=== PATIENT | male | born 1950 | race Caucasian/White ===

== ENCOUNTER 2018-03-08 05:15 | Day surgery (SDC) | payer MEDICARE ==
[2018-03-07 09:06] LABS: HEMATOCRIT 38.6 % (42.0-54.0); HEMOGLOBIN 12.9 g/dL (13.5-17.5); MCHC 33.4 g/dL (31.0-37.0); MCV 89.8 fL (80.0-100.0); MEAN PLATELET VOLUME 9.1 fL (7.4-10.4); RBC 4.3 10x6/uL (4.20-6.10); RDW 14.3 % (11.5-14.5); WBC 9.5 10x3/uL (4.8-10.8)
[~2018-03-08] VITALS: Ht 182.9 cm; Wt 113.4 kg
--- NOTE | ~2018-03-08 | OP ---
PATIENT NAME: HOANG COHEN MEDICAL RECORD: [id number] :48 LOCATION:[facility] ADMISSION DATE: SURGEON: HUSSEIN BLANCO DO DATE OF OPERATION: 03/08/2018 PROCEDURE PERFORMED: Left knee arthroscopy with partial medial and partial lateral meniscectomies. PREOPERATIVE DIAGNOSIS: Left knee medial meniscal tear. POSTOPERATIVE DIAGNOSES: Left knee medial meniscal tear with grade III chondromalacia of the medial femoral condyle, the medial tibial plateau and the lateral facet of the patella and lateral meniscal tear. INDICATIONS: Mr. Cohen is a 67-year-old male who came to my office last year, complaining of knee pain. We got an MRI that showed some arthritis and a meniscal tear, degenerative nature in the posterior horn of the medial meniscus. It was catching, popping, locking on. My nurse practitioner saw him again in October and he was still having problems. He was scheduled for surgery in July for this problem, but due to some other issues, he could not have surgery. He was rescheduled for December and again had some other issues and could not have surgery. He got medically cleared for surgery today for the knee scope. I informed him of the risks and benefits of the procedure including the fact that he may not get a whole lot better due to the fact that he does have underlying arthritis in the knee, but we trim out the meniscus and then hopefully get rid of his meniscal symptoms. He was aware of that and consented to the procedure. He is aware of the risks including infection, bleeding, need for further surgery, and he was okay with that too and signed the consent. SURGEON: Hussein Blanco DO DESCRIPTION OF PROCEDURE: The patient was brought to the operative suite, laid in supine position, given general anesthetic and 2 grams Ancef preoperatively. The left lower extremity was prepped and draped in sterile fashion. Once he was prepped and draped, timeout was performed, everyone was in agreement as to the correct, side, site, patient, and the procedure. The procedure then began with the knee flexed and started with a lateral portal opening up with an 11-blade scalpel. The trocar was then entered in the knee. Suprapatellar pouch was inspected. The grade III chondromalacia was seen on the patella and then on the lateral facet. The lateral gutter was inspected and no loose body was seen there. Medial gutter likewise was inspected and the knee was brought from extension to flexion and the medial compartment was entered. The medial compartment was quite tight likely due to the arthritis and there appeared to be a small plica band, which was resected at that time. Once this was resected, the knee opened up better. The medial portal was established with an 18-gauge spinal needle and then a #11-blade scalpel. A probe was entered into the knee. The meniscal tear was seen as well as the chondromalacia of the medial femoral condyle and the medial tibial plateau. The meniscus was then trimmed out with a straight biter and a shaver. Once the meniscus was trimmed back to a stable position, it was not flipping in and out. The ACL was probed and seen to be very taut and then lateral compartment was entered [id number] the leg. There was a small tear noticed on the very inside of the middle of the middle portion of the lateral meniscus, this was trimmed out with a shaver. The scope was then put back in the suprapatellar pouch, looking for any loose bodies. At that time, there was none seen. The suction was turned on. The water was OPERATIVE REPORT [id number] HOANG COHEN turned off and the excess fluid removed out of the knee. After this was performed, the portal sites were closed with 4-0 Monocryl in inverted interrupted fashion. Steri-Strips, Adaptic, 4 x 4's, ABD, Webril and Juan Antonio wrap were then placed on the knee and a PURA hose stockinette was placed up to the knee. The patient was awakened and taken to recovery in stable condition. Blood loss was minimal. COMPLICATIONS: None. TRANSINT:[id number] Voice Confirmation ID: [id number] DOCUMENT ID: [id number] HUSSEIN BLANCO DO at 1220 CC: [id number] DICTATION DATE: 03/08/18 0843 PLUMBING MECHANIC: 03/08/18 1114 [facility] 03/08/18 [place] [id number] [place] [id number]
[~2018-03-08 05:15] MED LIST: ASPIRIN EC81 M1 PO; COREG6.25 MG PO; COZAAR100 MG PO; PLAVIX75 MG PO; PROBIOTIC BLEN1 EACH PO
[2018-03-08 06:43] VITALS: BP 149/83; Ht 182.9 cm; Wt 113.4 kg
[2018-03-08] MEDS ORDERED: PERCOCET 5-3251 TAB PO (08:38)
== END 2018-03-08 10:24 | disposition home or self-care (01) ==
LOC: D.OPS 05:15 → D.PAN 07:30 → D.OPS 10:24 → D.PAN 03-29 07:30
PROVIDERS: Anesthesiology
DX: S83.252A Bucket-handle tear of lateral meniscus, current injury, left knee, initial encounter (principal)

== ENCOUNTER → 2018-11-07 19:40 | Outpatient (CLI) | payer MEDICARE ==
[2018-03-08 06:43] VITALS: BMI 34.0
[~2018-11-07 19:40] MED LIST changes: +BAYER CHEWABLE81 MG PO; +CITRACAL + D E1 EACH PO; +HYDRALAZINE HCL25 MG PO; +NITROSTAT0.4 MG SL; +NORVASC5 MG PO; +PERCOCET 5-3251 TAB PO
== END | disposition home or self-care (01) ==
LOC: D.LABREF 19:40
PROVIDERS: ATTEND Orthopaedic Surgery
DX: M17.11 Unilateral primary osteoarthritis, right knee (principal); Z11.8 Encounter for screening for other infectious and parasitic diseases

== ENCOUNTER 2018-11-11 06:17 | Outpatient (CLI) | payer MEDICARE ==
[~2018-11-11] VITALS: Ht 182.9 cm; Wt 112.3 kg
--- NOTE | ~2018-11-11 | HEMODYNAMI ---
PATIENT:HOANG CABELLO MEDICAL RECORD: [id number] : 48 LOCATION:[facility] ADMISSION DATE: 11/11/18 Generatedon:11/11/20189:56 Patient name: HOANG CABELLO Patient #: [id number] SSN: : 1950 Date of study: 11/11/2018 Page: Of Hemodynamic Procedure Report Patient Data Patient Demographics Procedure consent was obtained First Name: HOANG Gender: Male Last Name: DESTINEY : 1950 Patient #: [id number] Age: 68 year(s) Race: Unknown Additional ID: [id number] Contact details Address: [address] [place] [address] lane State: [place] City: [place] Zip code: [address] Past Medical History Allergies Allergen Reaction Date Comments Reported Other allergy 11/11/2018 CEFDINIR Admission Admission Data Admission Date: 11/11/2018 Admission Time: 6:17 Procedure Procedure Types Cath Procedure Diagnostic Procedure LHC LH w/Coronaries Sedation Charges Moderate Sedation up to 15 minutes PCI Procedure Coronary Stent Coronary Stent Initial Procedure Description Procedure Date Procedure Date: 11/11/2018 Procedure Start Time: 9:24 Procedure End Time: 9:54 Procedure Staff Name Function Sina Lee MD Performing Physician Paolo Skelton RN Nurse Alissa Yang RT Monitor Handy Varma RT Scrub Procedure Data Cath Procedure Fluoroscopy Diagnostic fluoroscopy Total fluoroscopy Time: 8.4 time: 8.4 min min Diagnostic fluoroscopy Total fluoroscopy dose: dose: 1522 mGy 1522 mGy Contrast Material Contrast Material Type Amount (ml) Isovue 300 10 Entry Location Entry Primary Successful Side Size Upsize Upsize Entry Closure Jimenez ccessful Closure Location (Fr) 1 (Fr) 2 (Fr) Remarks Device Remarks Radial Right 6 Fr Mechanical artery Short Compression Estimated blood loss: 10 ml Diagnostic catheters Device Type Used For End Catheter Placement DIAGNOSTIC Daren 110cm Procedure 5Fr catheter ([id number]) DIAGNOSTIC AR MOD 5Fr Procedure Catheter ([id number]) DIAGNOSTIC AR2 MOD 5 Fr Procedure catheter ([id number]) DIAGNOSTIC Kinston 4.5 5Fr Procedure catheter (205692) Procedure Complications No complications Procedure Medications Medication Administration Route Dosage 0.9% NaCl I.V. 100 ml/hr Oxygen etCO2 Nasal cannula 2 l/min Heparin Flush Bag added to field 2 bags (1000units/500ml NS) Lidocaine 2% added to field 20 Radial Cocktail added to field 1 syringe (Verapamil 2mg/Nitro 400mcg/Heparin 1500units) Versed I.V. 2 mg Fentanyl I.V. 100 mcg Radial Cocktail I.A. 1 syringe (Verapamil 2mg/Nitro 400mcg/Heparin 1500units) Heparin Bolus I.V. 55903 units Plavix P.O. 600 mg Hemodynamics Rest Heart Rate: 68 (bpm) Pressure Samples Time Site Value (mmHg) Purpose Heart Use Rate(bpm) 9:26 LV 118/-10,5 Snapshot 72 9:27 AO 81/51(60) Pullback 80 9:27 LV 101/3,6 Pullback 80 Gradients Valve Time Site 1 Site 2 Mean SEP/DFP Peak To Heart Use (mmHg) (sec/min) Peak Rate (mmHg) (bpm) Aortic 9:27 LV AO 13 20 20 80 101/3,6 81/51(60) Calculations Valve P-P Mean Valve Index Valve Source Name Gradient Area Flow (cm2) Aortic 20 13 20 13 Snapshots Pre Cath Intra NCS Post Cath Vital Signs Time Heart Resp SPO2 etCO2 NIBP (mmHg) Rhythm Pain Sedation Rate (ipm) (%) (mmHg) Status Level (bpm) 9:16:15 68 20 96 36.3 125/78(99) NSR 0 (11) 10(A) , No pain 9:20:25 67 16 96 37.1 117/77(98) NSR 0 (11) 10(A) , No pain 9:24:31 67 20 96 38.6 122/72(109) NSR 0 (11) 10(A) , No pain 9:28:34 77 20 95 30.4 107/67(94) NSR 0 (11) 10(A) , No pain 9:32:38 72 17 95 37.1 107/72(97) NSR 0 (11) 10(A) , No pain 9:36:46 67 20 96 34.9 112/67(92) NSR 0 (11) 9(A) , No pain 9:40:56 68 17 97 37.8 114/70(88) NSR 0 (11) 9(A) , No pain 9:45:10 68 18 96 36.4 108/62(84) NSR 0 (11) 9(A) , No pain 9:49:20 72 23 96 34.1 106/66(80) NSR 0 (11) 10(A) , No pain 9:53:27 69 16 97 34.9 111/66(82) NSR 0 (11) 10(A) , No pain Medications Time Medication Route Dose Verified Delivered Reason Note s Effectiveness by by 9:17:51 0.9% NaCl I.V. 100 Paolo Paolo Per physician ml/hr Nafisa Skelton RN RN 9:18:02 Oxygen etCO2 2 l/min Paolo Paolo for low 02 sats Nasal Nafisa Skelton cannula RN RN 9:18:13 Heparin Flush added 2 bags Paolo Paolo used for Bag to Nafisa Skelton procedure (1000units/500ml RN RN NS) 9:18:27 Lidocaine 2% added 20ml Paolo Paolo for local to vial Lorigan Lorigan anesthetic field NESS RN 9:18:48 Radial Cocktail added 1 Paolo Paolo used for (Verapamil to syringe Nafisa Skelton procedure 2mg/Nitro RN RN 400mcg/Heparin 1500units) 9:22:55 Versed I.V. 2 mg Paolo Paolo for sedation Nafisa Skelton RN RN 9:23:08 Fentanyl I.V. 100 mcg Paolo Paolo for sedation Nafisa Skelton RN RN 9:25:38 Radial Cocktail I.A. 1 Paolo Sina for (Verapamil syringe Nafisa Lee MD vasodilation 2mg/Nitro RN 400mcg/Heparin 1500units) 9:43:58 Heparin Bolus I.V. 11,000 Paolo Paolo for units Nafisa Skelton anticoagulation RN RN 9:52:20 Plavix P.O. 600 mg Paolo Paolo for Lorgregg Skelton antiplatelet RN RN therapy Procedure Log Time Note 8:55:14 Handy TABOR(R) sent for patient. Start room use. 9:04:10 Signed procedure consent form obtained from patient. 9:04:12 Diagnostic Cath status Elective 9:05:35 Patient received from Pre/Post Procedure Room to CCL 1 Alert and oriented. Tansferred to table in Supine position. 9:05:36 Warm blankets applied, and matty hugger turned on for patient comfort. 9:05:36 Correct patient and procedure confirmed by team. 9:05:37 ECG and BP/O2 sat monitors applied to patient. 9:15:15 Vital chart was started 9:15:17 Baseline sample Acquired. 9:15:20 Rhythm: sinus rhythm 9::22 Full Disclosure recording started 9::22 Pre-procedure instructions explained to patient. :15:22 Pre-op teaching completed and patient verbalized understanding. 9:15:25 Family in patients room. 9:15:26 Patient NPO since Midnight. 9:15:45 Patient allergic to Other allergyCEFDINIR 9:15:47 Is the patient allergic to Iodine/contrast media? No. 9:15:48 Patient diabetic? No. 9:15:51 Previous problem with sedation/anesthesia? No ? 9:15:52 Snore? Yes 9:15:53 Sleep apnea? No 9:15:54 Deviated septum? No 9:15:54 Opens mouth fully? Yes 9:15:55 Sticks out tongue? Yes 9:16:00 Airway obstruction? No ? 9:16:02 Dentures? No ? 9:17:51 0.9% NaCl 100 ml/hr I.V. was administered by Paolo Skelton RN; Per physician; 9:18:02 Oxygen 2 l/min etCO2 Nasal cannula was administered by Paolo Skelton RN; for low 02 sats; 9:18:13 Heparin Flush Bag (1000units/500ml NS) 2 bags added to field was administered by Paolo Skelton RN; used for procedure; 9:18:27 Lidocaine 2% 20ml vial added to field was administered by Paolo Skelton RN; for local anesthetic; 9:18:46 Pre procedure: right dorsailis pedis pulse 1+ Palpable, but thready & weak; easily obliterated 9:18:48 Radial Cocktail (Verapamil 2mg/Nitro 400mcg/Heparin 1500units) 1 syringe added to field was administered by Paolo Skelton RN; used for procedure; 9:18:48 Patient pain scale 0/10 ?. 9:18:52 IV patent on arrival in left hand with 0.9% NaCl at KVO. 9:18:55 Lab results completed and on chart. 9:19:01 Right Radial & Right Groin area was prepped with chlora-prep and draped in sterile fashion 9:19:02 Alarms reviewed by R. N. 9:19:02 Sharps counted by scrub and verified by R.N. 9:19:03 Sharps counted by scrub and verified by R.N. 9:20:34 Use device set Radial Dx or PCI 9:20:36 ACIST Syringe (37296) opened to sterile field. 9:20:39 Bag Decanter (2002S) opened to sterile field. 9:20:40 ACIST Hand Control (20980) opened to sterile field. 9:20:40 ACIST Manifold (32431) opened to sterile field. 9:20:41 Tegaderm 4 x 4 (1626W) opened to sterile field. 9:20:43 Medline Cath Pack ([id number]) opened to sterile field. 9:20:43 DIAGNOSTIC WIRE .035 260cm J wire (804203) opened to sterile field. 9:20:43 MBrace Wrist Support ([id number]) opened to sterile field. 9:20:44 SHEATH 6FR Slender (21-4327) opened to sterile field. 9:20:54 --------ALL STOP TIME OUT------ 9:20:54 Final Timeout: patient, procedure, and site verified with staff and physician. All members of the team are in agreement. 9:20:57 Right Radial & Right Groin site verified by team. 9:20:59 Maximum allowable Isovue 300 dose 300ml. Physician notified. (300ml for normal creatinines. For patients with creatinine of 1.7 or higher multiply weight(kg) x 5 divided by creatinine.) 9:21:02 Fire Safety Assessment: A--An alcohol-based skin anteseptic being used preoperatively., C--Open oxygen or nitrous oxide is being used., D--An ESU, laser, or fiber-optic light is being used. 9:21:04 Physical assessment completed. ASA score P 2 - A patient with mild systemic disease as per Sina Lee MD. 9:21:07 Sedation plan: IV Moderate Sedation Medication:Versed, Fentanyl 9:22:55 Versed 2 mg I.V. was administered by Paolo Skelton RN; for sedation; 9:23:08 Fentanyl 100 mcg I.V. was administered by Paolo Skelton RN; for sedation; 9::42 Zero performed for pressure channel P1 9:24:33 Zero performed for pressure channel P1 9:24:39 Procedure started. 9:24:45 Local anesthetic to right radial artery with Lidocaine 2% by Sina Lee MD.INITIAL ACCESS ONLY 9:25:05 A 6 Fr Short sheath was inserted into the Right Radial artery 9:25:32 A DIAGNOSTIC Daren 110cm 5Fr catheter (531730) was advanced over the wire and used for Procedure. 9:25:38 Radial Cocktail (Verapamil 2mg/Nitro 400mcg/Heparin 1500units) 1 syringe I.A. was administered by Sina Lee MD; for vasodilation; 9:26:13 LV gram done using VELEZ 9::19 Injector settings: Ml/sec: 7, Volume: 15, 9::39 LV hemodynamics recorded. 9:26:59 EF : 60 % 9:29:42 LCA angiography performed. 9:29:47 Catheter exchanged over wire. 9:31:00 A DIAGNOSTIC AR MOD 5Fr Catheter ([id number]) was advanced over the wire and used for Procedure. 9:32:31 UNABLE TO ENGAGE RCA 9:32:32 Catheter exchanged over wire. 9:32:53 A DIAGNOSTIC AR2 MOD 5 Fr catheter ([id number]) was advanced over the wire and used for Procedure. 9:36:08 UNABLE TO ENGAGE RCA 9:36:09 Catheter exchanged over wire. 9:36:21 A DIAGNOSTIC Kinston 4.5 5Fr catheter (889429) was advanced over the wire and used for Procedure. 9:36:58 RCA angiography performed. 9:40:07 Catheter exchanged over wire. 9:41:46 BMW 300cm Straight Thomson 2 wire (1529917) opened to sterile field. 9:41:47 INFLATOR Merit BasixCompak (YM2373) opened to sterile field. 9:41:47 TUBING High Pressure Extension Tubing (Jesus) ([id number]) opened to sterile field. 9:42:02 GUIDE 6Fr Kinston 4.0 catheter (772587) opened to sterile field. 9:43:20 6 Fr TIGER 4 guide catheter was inserted over the wire 9:43:58 Heparin Bolus 11,000 units I.V. was administered by Paolo Skelton RN; for anticoagulation; 9:44:34 BMW 300 wire advanced. 9:45:27 Wire advanced across lesion. 9:47:37 Place stent Inflation Number: 1 A COBRA RX 2.5 X 12 Stent was prepped and advanced across the Dist RCA . The stent was deployed at 14 MICH for 0:10 (min:sec) . 9:47:53 Stent catheter was removed intact over wire. 9:48:10 Wire removed. 9:48:11 Guide catheter removed. 9:48:19 TR BAND Standard ([id number]) opened to sterile field. 9:48:53 Procedure ended.(Physican Out) 9:49:38 Sheath removed intact; hemostasis achieved with Mechanical Compression to the Right Radial artery. 9:50:13 Fluoroscopy time 08.40 minutes. 9:50:17 Fluoroscopy dose: 1522 mGy 9:50:17 Flurop Dose total: 1522 9:50:22 Contrast amount:Isovue 300 10ml. 9:51:00 Sharps counted by scrub and verified by R.N. 9:51:02 TR band inflated with 8cc of air. 9:51:08 Post-procedure physical assessment completed. ASA score P 2 - A patient with mild systemic disease as per Sina Lee MD. 9:51:10 Post procedure rhythm: sinus rhythm 9:51:12 Estimated blood loss: 10 ml 9:51:13 Post procedure instruction explained to patient.Patient verbalizes understanding. 9:51:14 Patient needs reinforcement of post procedure teaching. 9:51:38 Procedure type changed to Cath procedure, Diagnostic procedure, LHC, C w/Coronaries, Sedation Charges, Moderate Sedation up to 15 minutes, PCI procedure, Coronary Stent, Coronary Stent Initial 9:52:07 Procedure and supply charges have been captured, reviewed, submitted and are correct. 9:52:10 Procedure Complication : No complications 9:52:20 Plavix 600 mg P.O. was administered by Paolo Skelton RN; for antiplatelet therapy; 9:54:24 Vital chart was stopped 9:54:25 See physician's report for complete and final results. 9:54:26 Report given to Pre/Post Procedure Room. 9:54:29 Patient transfered to Pre/Post Procedure Room with Bed. 9:54:30 Procedure ended. 9:54:30 Full Disclosure recording stopped 9:54:33 End room use (Document Last) Intervention Summary Intervention Notes Time ActionType Lesion and Equipment Action# Pressure Duration Attributes Used 9:47:37 Place stent Dist RCA COBRA RX 1 14 00:10 2.5 X 12 Stent Device Usage Item Name Manufacture Quantity Catalog Hospital Part Current Minimal Lot# / Number Charge Number Stock Stock Serial# Code ACIST Syringe Acist 1 71671 662801 632776 183426 20 (61336) Medical Systems Xenapto Bag Decanter Microtek 1 2001S 230597 33084 609453 5 (2001S) Medical Inc. ACIST Hand Acist 1 42502 607580 048343 082028 5 Control Medical (99944) Systems Inc ACIST Manifold Acist 1 98287 388865 804805 662763 5 (23338) Medical Systems Inc Tegaderm 4 x 4 3M 1 1626W 933395 854415 953287 5 (1626W) Medline Cath Medline 1 [id number] 429064 37496 459296 5 Pack ([id number]) DIAGNOSTIC St Real 1 646602 656750 756356 087042 30 WIRE .035 260cm J wire (383823) MBrace Wrist Advanced 1 140-0250-00 335383 71134 717641 5 Support Vascular (542310590) Dynamics SHEATH 6FR Terumo 1 [id number] 933277 151221 225585 5 Slender (80-1060) DIAGNOSTIC Terumo 1 40-5023 506887 485421 768702 5 Daren 110cm 5Fr catheter (740840) DIAGNOSTIC AR Cardinal 1 [id number] 454584 035054 716008 15 MOD 5Fr Health Catheter (613967Q) DIAGNOSTIC AR2 Cardinal 1 [id number] 076351 492280 931718 20 MOD 5 Fr Health catheter (041745Z) DIAGNOSTIC Terumo 1 40-5012 763538 625271 161398 5 Kinston 4.5 5Fr catheter (528053) BMW 300cm Valentine 1 0910590 797622 133731 530049 5 Straight Vascular Thomson 2 wire (8766234) INFLATOR Merit Merit 1 PM5696 395373 347106 642657 15 BasixCompak Medical (PO7246) TUBING High Merit 1 [id number] 559216 34444 365320 10 Pressure Medical Extension Tubing (Lee) (ER9566L) GUIDE 6Fr Terumo 1 58-0369 410016 956855 231380 1 Kinston 4.0 catheter (131862) COBRA RX 2.5 X Celonova 1 058-62-49097 341972 407870341 89582348 5 0 [id number] 12 stent Biosciences (098-66-93008) TR BAND Terumo 1 [id number] 552881 164521 062218 40 Standard ([id number]) Signature Audit [place] Stage Time Signature Unsigned Intra-Procedure 11/11/2018 Ailssa Yang 9:56:14 AM RT(R) Signatures Monitor : Alissa Yang Signature : RT Date : Time : [place] [address]60[address] [place] [address]
[~2018-11-11 06:17] MED LIST changes: -BAYER CHEWABLE81 MG PO; -CITRACAL + D E1 EACH PO; -HYDRALAZINE HCL25 MG PO; -NITROSTAT0.4 MG SL; -NORVASC5 MG PO
[2018-11-11] MEDS ORDERED: NORVASC5 MG PO (06:54)
[2018-11-11] MEDS ORDERED: HYDRALAZINE HCL25 MG PO (06:57)
[2018-11-11] MEDS ORDERED: NITROSTAT0.4 MG SL (06:57)
[2018-11-11] MEDS ORDERED: CITRACAL + D E1 EACH PO (06:58)
[2018-11-11 07:04] VITALS: BP 132/81; Ht 182.9 cm; Wt 112.3 kg
[2018-11-11 07:13] LABS: BASOPHILS 0.5 % (0-2); EOSINOPHILS 2.4 % (0-7); HEMATOCRIT 38.5 % (42.0-54.0); IMMATURE GRANULOCYTES 0.8 % (0-5); LYMPHOCYTES 31.2 % (15-50); MCH 29.7 pg (26.0-34.0); MCHC 33.8 g/dL (31.0-37.0); MCV 87.9 fL (80.0-100.0); MONOCYTES 14.6 % (2-11); NEUTROPHILS 50.5 % (40-80); PLATELET COUNT 233 10x3/uL (130-400); RBC 4.38 10x6/uL (4.20-6.10); RDW 14.5 % (11.5-14.5); WBC 7.8 10x3/uL (4.8-10.8)
[2018-11-11 07:22] LABS: ANION GAP 14.8 mmol/L (8-16); CALCIUM 9.4 mg/dL (8.5-10.1); CARBON DIOXIDE 24.1 mmol/L (21.0-32.0); CREATININE - SERUM 1.2 mg/dL (0.6-1.3); POTASSIUM - SERUM 3.9 mmol/L (3.5-5.1)
[2018-11-11] MEDS ORDERED: BAYER CHEWABLE81 MG PO (10:03)
[2018-11-11] MEDS ORDERED: PLAVIX75 MG PO (10:03)
--- NOTE | 2018-11-11 10:18 | NUR ---
RECIEVED TO ROOM VIA STRETCHER FROM THE NITROGLYCERIN NITRATOR OPERATOR BATCH WITH TR BAND TO R/WRIST CDI NO BLEEDING OR HEMATOMA. PATIENT CONNECTED TO MONITOR FOR OBSERVATION WITH HR OF 77 BP 112/64 CHEST PAIN IS DENIED
--- NOTE | 2018-11-11 10:25 | NUR ---
PATIENT VOICED NO CHEST PAIN TR BAND IS CDI AND VSS. FAMILY IS AT BEDSIDE
--- NOTE | 2018-11-11 10:38 | NUR ---
REPOSITIONED TO [facility] UP 30 FOR COMFORT. PATIENT TOLERATING COFFEE WITH NAUSEA DENIED
--- NOTE | 2018-11-11 10:50 | NUR ---
TR BAND TO R/WRIST IS CDI NO BLEEDING OR HEMATOMA NOTED. PATIENT DENIED PAIN OR NEEDS. CALL LIGHT IS IN REACH WITH BED IN LOCKED POSITION
--- NOTE | 2018-11-11 11:30 | NUR ---
PATIENT RESTING QUIETLY WITH VSS TR BAND TO R/WRIST IS CDI
--- NOTE | 2018-11-11 12:30 | NUR ---
3 CC AIR REMOVED FROM TR BAND WITH NO BLEEDING OR HEMATOM NOTED
--- NOTE | 2018-11-11 13:03 | NUR ---
3 CC AIR REMOVED FROM TR BAND WITH NO BLEEDING OR HEMATOMA NOTED. VERBAL AND WRITTEN DISCHARGE GONE OVER WITH PATIENT AND FAMILY.
--- NOTE | 2018-11-11 13:19 | NUR ---
3 CC AIR REMOVED FROM TR BAND WITH NO BLEEDING OR HEMATOMA. PIV REMOVED WITH DRESSING APPLIED. PATIENT DENIED CHEST PAIN UP TO GET DRESSED FOR DISCHARGE HOME
--- NOTE | 2018-11-11 13:25 | NUR ---
PT AMBULATED TO RESTROOM. VOIDED WITHOUT DIFFICULTY. BACK TO ROOM. REMOVED TR BAND. DRESSING APPLIED. NO BLEEDING/HEMATOMA NOTED. RIGHT WRIST BRACE ON AND PT INSTRUCTED TO KEEP ON FOR 2 HOURS AFTER ARRIVAL HOME.
--- NOTE | 2018-11-11 13:40 | NUR ---
RIGHT WRIST DRESSING C/D/I. NO S/S OF HEMATOMA NOTED. PT TAKEN OUT TO VEHCILE BY WHEELCHAIR. NO S/S OF DISTRESS NOTED. ALL BELONGINGS AND PAPERWORK IN HAND.
== END 2018-11-11 13:40 | disposition home or self-care (01) ==
LOC: D.CATH 06:17
PROVIDERS: ATTEND Internal Medicine Cardiovascular Disease
DX: I25.110 Atherosclerotic heart disease of native coronary artery with unstable angina pectoris (principal)

== ENCOUNTER 2018-11-24 05:59 | Outpatient (CLI) | payer MEDICARE ==
[~2018-11-24] VITALS: Ht 182.9 cm; Wt 110.0 kg
--- NOTE | ~2018-11-24 | HEMODYNAMI ---
PATIENT:HOANG CABELLO MEDICAL RECORD: [id number] : 48 LOCATION:[facility] ADMISSION DATE: 11/24/18 Generatedon:11/24/20188:37 Patient name: HOANG CABELLO Patient #: [id number] SSN: : 1950 Date of study: 11/24/2018 Page: Of Hemodynamic Procedure Report Patient Data Patient Demographics Procedure consent was obtained First Name: HOANG Gender: Male Last Name: DESTINEY : 1950 Patient #: [id number] Age: 68 year(s) Race: Unknown Additional ID: [id number] Contact details Address: [address] [place] [address] lane State: [place] City: [place] Zip code: [address] Past Medical History Allergies Allergen Reaction Date Comments Reported Other allergy 11/11/2018 CEFDINIR Other allergy 11/24/2018 CEFDINIR Admission Admission Data Admission Date: 11/24/2018 Admission Time: 5:59 Weight (lbs.): 242.51 Weight (kg.): 110 Lab Results Lab Result Date: 11/24/2018 Lab Result Time: 0:00 Biochemistry Name Units Result Min Max BUN mg/dl 21 --(----)-* 7 18 Creatinine mg/dl 1.2 --(---*)-- 0.6 1.3 CBC Name Units Result Min Max Hematocrit % 32.5 *-(----)-- 42 54 Hemoglobin g/dl 10.9 *-(----)-- 13.5 17.5 Procedure Procedure Types Cath Procedure PCI Procedure Coronary Stent Coronary Stent Initial Procedure Description Procedure Date Procedure Date: 11/24/2018 Procedure Start Time: 8:05 Procedure End Time: 8:34 Procedure Staff Name Function Sina Lee MD Performing Physician Alissa Yang RT Monitor Handy Varma RT Scrub Faizan Grigsby RN Nurse Procedure Data Cath Procedure Fluoroscopy Diagnostic fluoroscopy Total fluoroscopy Time: 6.2 time: 6.2 min min Diagnostic fluoroscopy Total fluoroscopy dose: 911 dose: 911 mGy mGy Contrast Material Contrast Material Type Amount (ml) Isovue 300 93 Entry Location Entry Primary Successful Side Size Upsize Upsize Entry Closure Succes sful Closure Location (Fr) 1 (Fr) 2 (Fr) Remarks Device Remarks Radial Right 6 Fr artery Short Femoral Right 6 Fr Exoseal artery Short Estimated blood loss: 10 ml Procedure Complications No complications Procedure Medications Medication Administration Route Dosage Oxygen etCO2 Nasal cannula 2 l/min Lidocaine 2% added to field 20 Heparin Flush Bag added to field 2 bags (1000units/500ml NS) 0.9% NaCl I.V. 100 ml/hr Radial Cocktail I.A. 1 syringe (Verapamil 2mg/Nitro 400mcg/Heparin 1500units) Versed I.V. 1 mg Fentanyl I.V. 50 mcg Versed I.V. 1 mg Fentanyl I.V. 50 mcg Versed I.V. 1 mg Heparin Bolus I.V. 72592 units Hemodynamics Rest Pre Cath Intra NCS Post Cath Vital Signs Time Heart Resp SPO2 etCO2 NIBP (mmHg) Rhythm Pain Sedation Rate (ipm) (%) (mmHg) Status Level (bpm) 7:49:59 65 20 98 0 142/79(123) NSR 0 (11) 10(A) , No pain 7:54:13 68 15 94 40.2 133/76(107) NSR 0 (11) 10(A) , No pain 7:58:29 65 14 97 32.7 128/75(102) NSR 0 (11) 10(A) , No pain 8:02:43 68 12 97 30.5 123/72(97) NSR 0 (11) 10(A) , No pain 8:06:55 64 20 96 29.7 123/75(106) NSR 0 (11) 9(A) , No pain 8:11:09 70 12 96 32 110/66(92) NSR 0 (11) 9(A) , No pain 8:15:19 68 12 96 33.5 115/70(99) NSR 0 (11) 9(A) , No pain 8:19:33 62 16 97 32.8 112/67(94) NSR 0 (11) 9(A) , No pain 8:23:43 65 13 96 33.5 115/72(85) NSR 0 (11) 9(A) , No pain 8:27:56 66 14 97 30.5 118/65(99) NSR 0 (11) 9(A) , No pain 8:32:11 65 14 97 35.7 118/70(102) NSR 0 (11) 10(A) , No pain Medications Time Medication Route Dose Verified Delivered Reason Note s Effectiveness by by 7:49:00 Oxygen etCO2 2 l/min Sina Buffie used for Nasal Jesus Grigsby RN procedure cannula 7:49:08 Lidocaine 2% added 20ml Sina Sina for local to vial Jesus Lee MD anesthetic field 7:49:15 Heparin Flush added 2 bags Sina Sina used for Bag to Jesus Lee MD procedure (1000units/500ml field NS) 7:49:23 0.9% NaCl I.V. 100 Sina Buffie Per physician ml/hr Jesus Grigsby RN 7:49:34 Radial Cocktail I.A. 1 Sina Sina for (Verapamil syringe Jesus Lee MD vasodilation 2mg/Nitro 400mcg/Heparin 1500units) 8:01:42 Versed I.V. 1 mg Sina Buffie for sedation Jesus Grigsby RN 8:01:48 Fentanyl I.V. 50 mcg Sina Buffie for sedation Jesus Grigsby RN 8:05:29 Versed I.V. 1 mg Sina Buffie for sedation Jesus Grigsby RN 8:05:33 Fentanyl I.V. 50 mcg Sina Buffie for sedation Jesus Grigsby RN 8:17:04 Versed I.V. 1 mg Sina Buffie for sedation Jesus Grigsby RN 8:21:09 Heparin Bolus I.V. 10,000 Sina Buffie for veri fied units Jesus Grigsby RN anticoagulation with dr lee Procedure Log Time Note 7:38:06 Signed procedure consent form obtained from patient. 7:38:08 Diagnostic Cath status Elective 7:38:09 Time tracking: Regular hours (M-F 7:00 - 5:00) 7:38:12 Plan of Care:Hemodynamics will remain stable., Cardiac rhythm will remain stable., Comfort level will be maintained., Respiratory function will remain adequate., Patient/ family verbilizes understanding of procedure., Procedure tolerated without complication., Recovers from procedure without complications.. 7:38:20 Buffie Grigsby RN sent for patient. Start room use. 7:42:07 Patient Weight : 242.51 lbs 7:42:48 Patient received from Pre/Post Procedure Room to CCL 1 Alert and oriented. Tansferred to table in Supine position. 7:43:10 Warm blankets applied, and matty hugger turned on for patient comfort. 7:43:10 Correct patient and procedure confirmed by team. 7:43:11 ECG and BP/O2 sat monitors applied to patient. 7:48:49 Vital chart was started 7:49:00 Oxygen 2 l/min etCO2 Nasal cannula was administered by Faizan Grigsby RN; used for procedure; 7:49:08 Lidocaine 2% 20ml vial added to field was administered by Sina Lee MD; for local anesthetic; 7:49:15 Heparin Flush Bag (1000units/500ml NS) 2 bags added to field was administered by Sina Lee MD; used for procedure; 7:49:23 0.9% NaCl 100 ml/hr I.V. was administered by Faizan Grigsby RN; Per physician; 7:49:34 Radial Cocktail (Verapamil 2mg/Nitro 400mcg/Heparin 1500units) 1 syringe I.A. was administered by Sina Lee MD; for vasodilation; 7:51:59 Full Disclosure recording started 7:52:06 Rhythm: sinus rhythm 7:52:20 H&P Date Dictated: 11/24/2018 H&P Addendum completed by physician on day of procedure. (MUST COMPLETE FOR ALL OUTPATIENTS). 7:52:21 Pre-procedure instructions explained to patient. 7:52:22 Pre-op teaching completed and patient verbalized understanding. 7:52:23 Family in waiting room. 7:52:25 Patient NPO since Midnight. 7:52:38 Patient allergic to Other allergyCEFDINIR 7:52:41 Is patient on blood thinner?Yes 7:52:43 ACC The patient was administered the following blood thiners within the last 24 hours: ACCPlavix 7:52:45 Patient diabetic? No. 7:52:49 Previous problem with sedation/anesthesia? No ? 7:52:51 Snore? Yes 7:52:52 Sleep apnea? No 7:52:54 Deviated septum? No 7:52:55 Opens mouth fully? Yes 7:52:55 Sticks out tongue? Yes 7:52:57 Airway obstruction? No ? 7:53:00 Dentures? No ? 7:53:02 Modified Garcia's test Ulnar < 7 seconds 7:53:04 Patient pain scale 0/10 ?. 7:53:17 IV patent on arrival in left hand with 0.9% NaCl at [facility]. 7:53:38 Lab Result : BUN 21 mg/dl 7:53:38 Lab Result : Hemoglobin 10.9 g/dl 7:53:38 Lab Result : Creatinine 1.2 mg/dl 7:53:38 Lab Result : Hematocrit 32.5 % 7:53:40 Lab results completed and on chart. 7:53:43 Right Radial & Right Groin area was prepped with chlora-prep and draped in sterile fashion 7:53:44 Alarms reviewed by R. N. 7:53:44 Sharps counted by scrub and verified by R.N. 7:53:51 Use device set CATH PACK 7:53:53 ACIST Syringe (00369) opened to sterile field. 7:53:53 ACIST Hand Control (40348) opened to sterile field. 7:53:53 ACIST Manifold (32069) opened to sterile field. 7:53:53 Medline Cath Pack ([id number]) opened to sterile field. 7:53:54 Bag Decanter (2002S) opened to sterile field. 7:53:55 DIAGNOSTIC WIRE .035 260cm J wire (198801) opened to sterile field. 7:54:17 BMW 300cm Straight [place] 2 wire (6949286) opened to sterile field. 7:54:17 INFLATOR Merit BasixCompak (ES4560) opened to sterile field. 7:54:18 TUBING High Pressure Extension Tubing (Lee) ([id number]) opened to sterile field. 7:54:18 SHEATH 6FR Slender (80-4300) opened to sterile field. 7:54:36 NEEDLE Cook 21G 4cm Radial (P48877) opened to sterile field. 7:59:38 GUIDE 6FR XBLAD 3.5 catheter (35837256) opened to sterile field. 7:59:54 --------ALL STOP TIME OUT------ 7:59:54 Final Timeout: patient, procedure, and site verified with staff and physician. All members of the team are in agreement. 7:59:56 Right Radial & Right Groin site verified by team. 7:59:58 Maximum allowable Isovue 300 dose 300ml. Physician notified. (300ml for normal creatinines. For patients with creatinine of 1.7 or higher multiply weight(kg) x 5 divided by creatinine.) 8:00:01 Fire Safety Assessment: A--An alcohol-based skin anteseptic being used preoperatively., C--Open oxygen or nitrous oxide is being used., D--An ESU, laser, or fiber-optic light is being used. 8:00:04 Physical assessment completed. ASA score P 2 - A patient with mild systemic disease as per Sina Lee MD. 8:00:06 Sedation plan: IV Moderate Sedation Medication:Versed, Fentanyl 8:01:42 Versed 1 mg I.V. was administered by Faizan Grigsby RN; for sedation; 8:01:48 Fentanyl 50 mcg I.V. was administered by Faizan Grigsby RN; for sedation; 8:04:46 Zero performed for pressure channel P1 8:04:49 Procedure started. 8:05:11 Local anesthetic to right radial artery with Lidocaine 2% by Sina Lee MD.INITIAL ACCESS ONLY 8:05:29 Versed 1 mg I.V. was administered by Faizan Grigsby RN; for sedation; 8:05:33 Fentanyl 50 mcg I.V. was administered by Faizan Grigsby RN; for sedation; 8:06:31 A 6 Fr Short sheath was inserted into the Right Radial artery 8:06:33 Zero performed for pressure channel P1 8:07:09 6 Fr XBLAD 3.5 guide catheter was inserted over the wire 8:11:58 Guide Catheter removed. unable to cannulate vessel. 8:12:23 GUIDE 6Fr Letha 4.0 catheter (830220) opened to sterile field. 8:12:31 6 Fr TIGER 4 guide catheter was inserted over the wire 8:13:31 Guide Catheter removed. unable to cannulate vessel. 8:13:40 GUIDE 6FR XBLAD 4.0 catheter (65064535) opened to sterile field. 8:14:28 6 Fr XBLAD 4 guide catheter was inserted over the wire 8:15:55 Guide Catheter removed. unable to cannulate vessel. 8:16:10 UNABLE TO ENGAGE LCA THROUGH RADIAL. 8:16:17 WILL PROCEED FEMORAL 8:17:04 Versed 1 mg I.V. was administered by Faizan Grigsby RN; for sedation; 8:17:14 SHEATH 6FR [place] (QHC270) opened to sterile field. 8:17:21 Local anesthetic to right femoral artery with Lidocaine 2% by Sina Lee MD.ADDITIONAL ACCESS 8:18:39 GUIDE 6FR XBLAD 4.0 catheter (48747534) opened to sterile field. 8:19:05 A 6 Fr Short sheath was inserted into the Right Femoral artery 8:19:39 6 Fr XBLAD 4 guide catheter was inserted over the wire 8:21:09 Heparin Bolus 10,000 units I.V. was administered by Faizan Grigsby RN; for anticoagulation; verified with dr lee 8:23:19 BMW 300 wire advanced. 8:23:20 Wire advanced across lesion. 8:29:03 Place stent Inflation Number: 1 A COBRA RX 3.0 X 18 Stent was prepped and advanced across the Prox LAD . The stent was deployed at 14 MICH for 0:10 (min:sec) . 8:29:20 Stent catheter was removed intact over wire. 8:29:23 Wire removed. 8:29:24 Guide catheter removed. 8:29:29 EXOSEAL 6Fr (EX600) opened to sterile field. 8:30:55 Sheath removed intact; hemostasis achieved with Exoseal to the Right Femoral artery. 8:31:03 Procedure ended.(Physican Out) 8:31:14 Fluoroscopy time 06.20 minutes. 8:31:18 Flurop Dose total: 911 8:31:18 Fluoroscopy dose: 911 mGy 8:31:21 Contrast amount:Isovue 300 93ml. 8:31:23 Sharps counted by scrub and verified by R.N. 8:31:28 Post-op/insertion site Right Femoral artery dressed using a 4 x 4 and Tegaderm. 8:31:38 TR BAND Standard ([id number]) opened to sterile field. 8:31:54 Post-procedure physical assessment completed. ASA score P 2 - A patient with mild systemic disease as per Sina Lee MD. 8:31:56 Post procedure rhythm: sinus rhythm 8:31:58 Estimated blood loss: 10 ml 8:32:00 Post procedure instruction explained to patient.Patient verbalizes understanding. 8:32:01 Patient needs reinforcement of post procedure teaching. 8:32:35 Procedure type changed to Cath procedure, PCI procedure, Coronary Stent, Coronary Stent Initial 8:34:06 Procedure and supply charges have been captured, reviewed, submitted and are correct. 8:34:10 Procedure Complication : No complications 8:34:13 Vital chart was stopped 8:34:13 See physician's report for complete and final results. 8:34:16 Report given to Pre/Post Procedure Room. 8:34:19 Patient transfered to Pre/Post Procedure Room with Bed. 8:34:21 Procedure ended. 8:34:21 Full Disclosure recording stopped 8:34:24 End room use (Document Last) 8:35:10 TR band inflated with 11cc of air. Intervention Summary Intervention Notes Time ActionType Lesion and Equipment Action# Pressure Duration Attributes Used 8:29:03 Place stent Prox LAD COBRA RX 1 14 00:10 3.0 X 18 Stent Device Usage Item Name Manufacture Quantity Catalog Hospital Part Current Minimal Lot# / Number Charge Number Stock Stock Serial# Code ACIST Syringe Acist 1 98894 956410 192560 095808 20 (40567) Medical Systems Inc ACIST Hand Acist 1 06674 157663 467493 689012 5 Control Medical (05859) Systems Inc ACIST Manifold Acist 1 68246 140813 931675 756583 5 (65224) Medical Systems Inc Medline Cath Medline 1 [id number] 502841 60185 830995 5 Pack ([id number]) Bag Decanter Microtek 1 2001S 995085 62323 218196 5 (2001S) Medical Inc. DIAGNOSTIC St Real 1 242427 314867 957629 442977 30 WIRE .035 260cm J wire (021554) BMW 300cm Valentine 1 6171382 729645 209332 963198 5 Straight Vascular [place] 2 wire (3196459) INFLATOR Merit Merit 1 DM7307 144731 613265 791418 15 BasixChristini Technologies Medical (RU2234) TUBING High Merit 1 [id number] 009351 49767 612803 10 Pressure Medical Extension Tubing (Lee) (LD8201K) SHEATH 6FR Terumo 1 [id number] 315265 206240 917036 5 Slender (80-1060) NEEDLE [facility] 1 N11494 978502 144589 675063 5 21G 4cm Radial (Q79106) GUIDE 6FR Cardinal 1 [id number] 513580 331575 971620 10 XBLAD 3.5 Health catheter (49760085) GUIDE 6Fr Terumo 1 40-2011 857515 677595 636928 1 Letha 4.0 catheter (043272) GUIDE 6FR Cardinal 2 54411935 114556 208559 935048 3 XBLAD 4.0 Health catheter (20658442) SHEATH 6FR Terumo 1 RKJ952 697683 023409 174410 40 [place] (RQL554) COBRA RX 3.0 X Celonova 1 230-33-73345 002128 216996746 06471158 6 [id number] 18 stent Biosciences (017-78-11991) EXOSEAL 6Fr Cardinal 1 EX600 867124 951772 143806 10 (EX600) Health TR BAND Terumo 1 [id number] 227426 139853 393490 40 Standard (THV27DIX) Signature Audit Whitlash Stage Time Signature Unsigned Intra-Procedure 11/24/2018 Alissa Yang 8:37:20 AM RT(R) Signatures Monitor : Alissa Yang Signature : RT Date : Time : [address] [address]
[~2018-11-24 05:59] MED LIST changes: +BAYER CHEWABLE81 MG PO; +CITRACAL + D E1 EACH PO; +HYDRALAZINE HCL25 MG PO; +NITROSTAT0.4 MG SL; +NORVASC5 MG PO
[2018-11-24 06:26] VITALS: BP 140/80; Ht 182.9 cm; Wt 110.0 kg
[2018-11-24 06:45] LABS: ANION GAP 12.8 mmol/L (8-16); CALCIUM 9.7 mg/dL (8.5-10.1); CARBON DIOXIDE 25.3 mmol/L (21.0-32.0); CREATININE - SERUM 1.2 mg/dL (0.6-1.3); POTASSIUM - SERUM 4.1 mmol/L (3.5-5.1)
[2018-11-24 06:52] LABS: BASOPHILS 0.4 % (0-2); HEMATOCRIT 32.5 % (42.0-54.0); HEMOGLOBIN 10.9 g/dL (13.5-17.5); IMMATURE GRANULOCYTES 0.9 % (0-5); LYMPHOCYTES 33.7 % (15-50); MCH 29.1 pg (26.0-34.0); MCHC 33.5 g/dL (31.0-37.0); MCV 86.9 fL (80.0-100.0); MEAN PLATELET VOLUME 9.1 fL (7.4-10.4); MONOCYTES 10.2 % (2-11); NEUTROPHILS 52.8 % (40-80); PLATELET COUNT 265 10x3/uL (130-400); RBC 3.74 10x6/uL (4.20-6.10); RDW 14.7 % (11.5-14.5); WBC 9.2 10x3/uL (4.8-10.8)
--- NOTE | 2018-11-24 08:58 | NUR ---
DRESSING TO RIGHT GROIN IS CDI, AREA IS SOFT AND NONTENDER. PEDAL PULSES PALPABLE. HOB IS FLAT. TR BAND CDI TO RIGHT WRIST, NO BLEEDING OR HEMATOMA NOTED. FINGERS WARM AND CAP REFILL IS BRISK. NSR, DENIES ANY C/O CHEST PAIN. AT BEDSIDE.
--- NOTE | 2018-11-24 09:47 | NUR ---
PT DENIES ANY C/O. DRESSING CDI TO RIGHT GROIN, PEDAL PULSES PALPABLE. TR BAND IS CDI TO RIGHT WRIST, FINGERS WARM AND CAP REFILL IS BRISK. VSS. HOB IS FLAT.
--- NOTE | 2018-11-24 10:04 | NUR ---
VSS, DRESSING CDI TO RIGHT GROIN, TR BAND CDI TO RIGHT WRIST. HOB IS FLAT, AT BEDSIDE.
--- NOTE | 2018-11-24 11:01 | NUR ---
DRESSING CDI TO RIGHT GROIN, PEDAL PULSES PALPABLE. PT HAS WILLEM PO FLUIDS WITH NO C/O. PT STATES HAS TAKEN HIS HOME DOSE OF PLAVIX 75 MG PO. TR BAND IS CDI TO RIGHT WRIST, NO BLEEDING OR HEMATOMA NOTED. FINGERS WARM AND CAP REFILL IS BRISK. HOB IS FLAT. AT BEDSIDE. VSS.
--- NOTE | 2018-11-24 11:51 | NUR ---
HOB ELEVATED, SANDWICH SERVED, DRESSING CDI TO RIGHT GROIN, TR BAND CDI, 3 CC WEANED WITH NO BLEEDING NOTED. FINGERS WARM, CAP REFILL IS BRISK. PT IS ALERT AND DENIES ANY C/O AT THIS TIME, AT BEDSIDE.
--- NOTE | 2018-11-24 12:12 | NUR ---
3 CC OF AIR WEANED FROM TR BAND WITH NO BLEEDING NOTED. FINGERS WARM AND CAP REFILL IS BRISK. PT IS ALERT AND DENIES ANY C/O. VSS. DENIES NEEDS AT THIS TIME.
--- NOTE | 2018-11-24 12:24 | NUR ---
DC INSTRUCTIONS REVIEWED WITH PT AND WHO VERBALIZE UNDERSTANDING. ALL REMAINING AIR WEANED FROM TR BAND WITH NO BLEEDING NOTED. DRESSING REMAINS CDI TO RIGHT GROIN, PEDAL PULSES PALPABLE. PT ALERT AND DENIES ANY C/O. AT BEDSIDE.
--- NOTE | 2018-11-24 12:35 | NUR ---
IV DC'D WTIH CATH INTACT AND PT IS DRESSING FOR DC WITH ASSIST. DRESSING REMAINS CDI TO RIGHT GROIN. PEDAL PULSES PALPABLE. DRESSING CDI TO RIGHT WRIST, WRIST IMMOBILIZER IN PLACE. RADIAL PULSE PALPABLE. FINGERS WARM AND CAP REFILL IS BRISK.
--- NOTE | 2018-11-24 12:48 | NUR ---
PT IS ALERT, DENIES ANY C/O. DRESSING REMAIN CDI TO WRIST AND GROIN. FINGERS WARM AND RAIDAL PULSE PALPABLE. PT DENIES ANY NV DEFICIT. PT ESCORTED TO PRIVATE AUTO VIA WC BY NURSE WITH DRIVING HIM HOME.
== END 2018-11-24 12:45 | disposition home or self-care (01) ==
LOC: D.CATH 05:59
PROVIDERS: ATTEND Internal Medicine Cardiovascular Disease
DX: I25.119 Atherosclerotic heart disease of native coronary artery with unspecified angina pectoris (principal); Z01.812 Encounter for preprocedural laboratory examination

== ENCOUNTER → 2019-03-20 07:59 | Outpatient (CLI) | payer MEDICARE ==
[2018-11-24 06:26] VITALS: BMI 32.9
== END | disposition home or self-care (01) ==
LOC: D.HCCARDIO 07:59
PROVIDERS: ATTEND Internal Medicine Cardiovascular Disease
DX: I25.10 Atherosclerotic heart disease of native coronary artery without angina pectoris (principal)

== ENCOUNTER → 2019-04-06 16:45 | Outpatient (CLI) | payer MEDICARE ==
[2018-11-24 06:26] VITALS: BMI 32.9
== END | disposition home or self-care (01) ==
LOC: D.LABREF 16:45
PROVIDERS: ATTEND Orthopaedic Surgery
DX: M17.11 Unilateral primary osteoarthritis, right knee (principal)

== ENCOUNTER 2019-10-26 14:13 | Inpatient (IN) | payer MEDICARE ==
[~2019-10-26] VITALS: Ht 182.9 cm; Wt 108.4 kg
--- NOTE | ~2019-10-26 | OP ---
PATIENT NAME: HOANG CABELLO MEDICAL RECORD: [id number] :48 LOCATION:[facility] ADMISSION DATE:10/31/19 SURGEON: LENARD KENDRICK MD DATE OF OPERATION: 10/31/2019 PREOPERATIVE DIAGNOSES: 1. Transverse colon polyp. 2. Gallstones. 3. Coronary artery disease. POSTOPERATIVE DIAGNOSES: 1. Transverse colon polyp. 2. Gallstones. 3. Coronary artery disease. PROCEDURES: 1. Hand-assisted laparoscopic right hemicolectomy. 2. Laparoscopic cholecystectomy. SURGEON: Lenard Kendrick MD REPORT OF PROCEDURE: The patient's abdomen was prepped and draped in sterile fashion. A skin incision was made around the umbilicus and electrocautery was used to dissect through the subcutaneous tissues and fascia until we entered the abdominal cavity. Once in the abdomen, we extended the incision superiorly and inferiorly and inserted the Gelport. The Gelport had a 5-mm trocar within it. After we insufflated the abdomen, then we placed 5-mm trocars in the epigastrium and another in the right subcostal region. We began by mobilizing the patient's right colon. We took down the white line of Toldt and started mobilizing the colon medially. There were some attachments present in the right lower quadrant from previous open appendectomy. These were all taken out carefully with electrocautery. We eventually were able to free up this section of the colon and the distal small bowel. Once this was freed up, then we can mobilize this colon, more easily medially and we began dissecting off the transverse colon from some attachments on the patient's gallbladder. At this point, we noted that there was a tattoo marking present in the surrounding fatty tissue and the colon. We were able to extend our dissection of the transverse colon past this marking. The marking was just distal to the patient's hepatic flexure. Once we have gotten past this, we noted there were a couple of vessels that were branching into the patient's right colon. These were clipped proximally and distally and ligated in standard fashion. At this point, we had the colon mobilized plenty for our resection and anastomosis. We then eviscerated this bowel through the wound protector of the GelPort. The distal small bowel was transected with a 75 blue load LISA stapler. The transverse colon was transected just distal to the mass. Using a 75 blue load LISA stapler. The mesentery was taken down with sequential clamp and tie technique with 3-0 silks. The large vessels of the right colon were taken down using 3-0 silk stick ties. This portion of the colon was then opened up on the back table and I could see that the polyp was present in the specimen and there was good clear margin distal to this around 2-3 cm. We then performed a dhgf-or-zotc anastomosis by making enterotomies in the distal small bowel and transverse colon and firing the 75 blue load LISA stapler. The enterotomies were closed with a 30 blue load TA stapler. I then oversewed the staple lines with 3-0 silks in a Lemberted fashion. This was placed back into the abdominal cavity. We then irrigated out the abdomen and assured there was no sign of any active bleeding. We then OPERATIVE REPORT [id number] HOANG CABELLO approached the patient's gallbladder. There were some adhesions still present and these were teased down carefully with blunt dissection and electrocautery. We were able to dissect out the cystic artery and cystic duct. These structures were clipped proximally and distally and ligated in standard fashion. The gallbladder was then taken off the liver bed using electrocautery. We pulled this through the wound protector and sent it off for permanent specimen. We inspected the liver bed and any bleeding was treated with electrocautery. At this point, we irrigated out the abdomen one last time. There was no sign of any bile leakage. The bowel was inspected again and was all shown to be lying in a normal anatomic fashion. The ports and insufflation were then removed. The midline fascia was closed with running #1 loop PDS times 2. The subcutaneous tissues were reapproximated with interrupted 3-0 Vicryl and the skin incisions were all closed with alanis. COMPLICATIONS: None. CONDITION: Stable. ANESTHESIA: General endotracheal. BLOOD LOSS: 200 mL. TRANSINT:[id number] Voice Confirmation ID: [id number] DOCUMENT ID: [id number] LENARD KENDRICK MD CC: LIS KING MD and JOSHUA MUNOZ [id number] DICTATION DATE: 10/31/19 1346 LAW ENFORCEMENT DIRECTOR: 10/31/19 1825 ADM IN [facility] [address] [place] [address]
--- NOTE | ~2019-10-26 | DS ---
PATIENT:HOANG CABELLO :48 MEDICAL RECORD: [id number] DISCHARGE SUMMARY ADMISSION DATE: 10/31/19 DISCHARGE DATE: 11/03/19 DATE OF ADMISSION: 10/31/2019 DATE OF DISCHARGE: 11/03/2019 ADMISSION DIAGNOSES: 1. Transverse colon polyp. 2. Coronary artery disease. 3. Gallstones. DISCHARGE DIAGNOSES: 1. Transverse colon polyp. 2. Coronary artery disease. 3. Gallstones. PROCEDURE: Hand-assisted laparoscopic right hemicolectomy and laparoscopic cholecystectomy. CONSULTATIONS: None. REPORT OF HOSPITALIZATION: The patient was admitted to the hospital after a successful hand-assisted laparoscopic right hemicolectomy for colon polyp and a laparoscopic cholecystectomy for gallstones. The patient did well postoperatively, had a normal postoperative course. He was eventually started on a clear liquid diet on postop day #2. He tolerated this well and was able to be advanced to a full liquid diet before discharge, he was having bowel function on the day of discharge. Denied nausea or vomiting. His lab values appear to be intact. At that point, his wounds are healing well and he was ambulating and felt to be stable for discharge home. DISCHARGE INSTRUCTIONS: He will return to clinic or call with any questions or concerns, fevers, chills, nausea, vomiting or worsening abdominal pain. ACTIVITIES: No heavy lifting or straining for 6 weeks postoperatively. FOLLOWUP: Is in clinic with me in 7-10 days. TRANSINT:[id number] Voice Confirmation ID: [id number] DOCUMENT ID: [id number] JOEL KENDRICK MD CC: [id number] DICTATION DATE: 11/03/19 1348 DOZER OPERATOR: 11/04/19 0409 DIS IN 11/03/19 [address] [place] [address]
[2019-10-31] VITALS (10 sets, daily range): BP systolic 121–142; BP diastolic 65–82; BMI 32.5
[2019-10-31 07:44] LABS: BASOPHILS 0.2 % (0-2); EOSINOPHILS 2.1 % (0-7); HEMOGLOBIN 12.7 g/dL (13.5-17.5); IMMATURE GRANULOCYTES 0.2 % (0-5); LYMPHOCYTES 28.2 % (15-50); MCH 28.6 pg (26.0-34.0); MCHC 32.6 g/dL (31.0-37.0); MCV 87.8 fL (80.0-100.0); MEAN PLATELET VOLUME 8.7 fL (7.4-10.4); MONOCYTES 7.6 % (2-11); NEUTROPHILS 61.7 % (40-80); PLATELET COUNT 250 10x3/uL (130-400); RBC 4.44 10x6/uL (4.20-6.10); RDW 14.5 % (11.5-14.5); WBC 9.3 10x3/uL (4.8-10.8)
[2019-10-31 08:24] LABS: ANION GAP 17.6 mmol/L (8-16); CALCIUM 9.2 mg/dL (8.5-10.1); CARBON DIOXIDE 22.6 mmol/L (21.0-32.0); CREATININE - SERUM 1.3 mg/dL (0.6-1.3); POTASSIUM - SERUM 4.2 mmol/L (3.5-5.1)
--- NOTE | 2019-10-31 17:31 | NUR ---
HIS DOES NOT KNOW WHAT MEDICATIONS HE TAKES. HE IS SLEEPING FROM SURGERY. HE HAS 3 LAP SITES; CLEAN, DRY, INTACT. HAS A GONZÁLES, HYPOSPADIAS. THE CALL LIGHT IS WITHIN REACH.
[2019-11-01] VITALS (7 sets, daily range): BP systolic 129–145; BP diastolic 73–92; Ht 182.9 cm; Wt 108.4 kg
[2019-11-01 04:59] LABS: BASOPHILS 0 % (0-2); EOSINOPHILS 0 % (0-7); HEMATOCRIT 35.5 % (42.0-54.0); HEMOGLOBIN 11.4 g/dL (13.5-17.5); IMMATURE GRANULOCYTES 0.2 % (0-5); LYMPHOCYTES 9.6 % (15-50); MCH 28.1 pg (26.0-34.0); MCHC 32.1 g/dL (31.0-37.0); MCV 87.7 fL (80.0-100.0); MEAN PLATELET VOLUME 8.9 fL (7.4-10.4); MONOCYTES 6.9 % (2-11); NEUTROPHILS 83.3 % (40-80); PLATELET COUNT 277 10x3/uL (130-400); RBC 4.05 10x6/uL (4.20-6.10); RDW 14.3 % (11.5-14.5)
[2019-11-01 05:27] LABS: WBC 14.8 10x3/uL (4.8-10.8)
[2019-11-01 05:36] LABS: ANION GAP 14.4 mmol/L (8-16); CALCIUM 8.5 mg/dL (8.5-10.1); CREATININE - SERUM 1.5 mg/dL (0.6-1.3); POTASSIUM - SERUM 4.4 mmol/L (3.5-5.1)
--- NOTE | 2019-11-01 11:30 | NUR ---
PATIENT GONZÁLES REMOVED. 9 ML REMOVED FROM BALLOON. PATIENT STATES SOME PAIN WITH REMOVAL. IDA IN ROOM. CL IN REACH. WCTM
--- NOTE | 2019-11-01 14:30 | NUR ---
MEDS GIVEN PER EMAR. PATIENT STATES HE HAS VOIDED. CL IN REACH. WCTM
--- NOTE | 2019-11-01 16:00 | NUR ---
PATIENT WALKED 250 FT AROUND NURSING STATION. STATES ABD PAIN WASN'T BAD HE THOUGHT IT WOULD BE. CL IN REACH. WCTM
--- NOTE | 2019-11-01 19:30 | NUR ---
PT IN BED, AAO X 3, RESP EVEN AND UNLABORED. NO DISTRESS NOTED, CL IN REACH, SR UP X 2.
[2019-11-02 01:11] VITALS: BP 105/64
--- NOTE | 2019-11-02 01:28 | NUR ---
I have reviewed this patient and I concur with the Shift Assessment completed by the Licensed Practical Nurse today this shift.
[2019-11-02 05:14] LABS: BASOPHILS 0.1 % (0-2); EOSINOPHILS 0.4 % (0-7); HEMATOCRIT 34.4 % (42.0-54.0); IMMATURE GRANULOCYTES 0.5 % (0-5); LYMPHOCYTES 20.4 % (15-50); MCH 28.3 pg (26.0-34.0); MCV 88.4 fL (80.0-100.0); MEAN PLATELET VOLUME 9.1 fL (7.4-10.4); MONOCYTES 8.8 % (2-11); NEUTROPHILS 69.8 % (40-80); PLATELET COUNT 273 10x3/uL (130-400); RBC 3.89 10x6/uL (4.20-6.10); RDW 14.7 % (11.5-14.5); WBC 16.8 10x3/uL (4.8-10.8)
[2019-11-02 05:20] LABS: ANION GAP 13.6 mmol/L (8-16); CALCIUM 8.5 mg/dL (8.5-10.1); CARBON DIOXIDE 23.4 mmol/L (21.0-32.0); CREATININE - SERUM 1.4 mg/dL (0.6-1.3)
[2019-11-02 06:49] VITALS: BP 147/84
[2019-11-02 09:07] VITALS: BP 153/91
--- NOTE | 2019-11-02 12:16 | MORECARE ---
CASE MANAGEMENT DISCHARGE SUMMARY PATIENT: HOANG COHEN UNIT: [id number] ADM DATE: 10/31/19 AGE: 69 : [birth year] SEX: M ROOM/BED: D.2201 AUTHOR: BELLADOC PHYSICIAN: REFERRING PHYSICIAN: JOEL KENDRICK MD DATE OF SERVICE: 11/02/19 Discharge Plan Patient Name: HOANG COHEN Facility: [facility]:[place] : 1950 Planned Disposition: Home or Self Care Anticipated Discharge Date: Discharge Date: Expected LOS: Initial Reviewer: [email or web address] Initial Review Date: 10/31/2019 Generated: 11/02/19 1:15 pm Comments DCP- Discharge Planning Updated by [email or web address]: Nevinval Pressley on 11/02/19 11:[address] CM met with patient regarding DC needs/plans. Patient lives independently with his , Jacinta. PCP: Dr. López. [facility]acy: [facility]. DME: 0. Emergency contact: Jacinta Cohen () [phone]. Denies use of community resources. States his home environment is safe. CM discussed HHS, Rehab, SNF, but patient states he does not need anything, at this time. Patient denies additional services for his DC home. Denies being hospitalized within past 30 days. Jackie will drive patient home upon DC. DCPIA - Discharge Planning Initial Assessment Updated by [email or web address]: Nevinval Pressley on 11/02/19 12:11 pm * Is the patient Alert and Oriented? Yes * How many steps to enter\exit or inside your home? * PCP Dr. López * Pharmacy [facility] * Preadmission Environment Home with Family * ADLs Independent * Equipment Cane * Other Equipment NA * List name and contact numbers for known caregivers / representatives who currently or will assist patient after discharge: Jacinta Cohen () [phone] * Verbal permission to speak to the caregivers and representatives has been obtained from the patient. Yes * Community resources currently utilized None * Please name any agencies selected above. NA * Additional services required to return to the preadmission environment? No * Can the patient safely return to the preadmission environment? Yes * Has this patient been hospitalized within the prior 30 days at any hospital? No Patient Name: HOANG COHEN Page 34193 at 1216 All edits/amendments must be made on the electronic document DICTATION DATE: 11/02/191214 SR COMMUNITY MANAGER: MIGUEL 11/02/191214 RPT#: [id number] DC DATE: STATUS: ADM IN [facility] [address] [place] [address] END OF REPORT
[2019-11-02 13:45] VITALS: BP 160/87
[2019-11-02 17:56] VITALS: BP 159/75
[2019-11-02 20:00] VITALS: BP 141/79
[2019-11-03] VITALS: BP 139/72
[2019-11-03 04:00] VITALS: BP 134/74
--- NOTE | 2019-11-03 07:10 | NUR ---
REC'D IN BED RESTING WITH EYES CLOSED EASILY TO AROUSED WHEN NAME IS CALLED. RESP EVEN AND UNLABORED WITH NO DISTRESS NOTED. CAN EXPRESS NEEDS AND WANTS.NO C/O VOICED. ASSESSMENT COMPLETED. C/L IN REACH AT BEDSIDE.
[2019-11-03 07:23] LABS: CALCIUM 8.1 mg/dL (8.5-10.1); CARBON DIOXIDE 24.5 mmol/L (21.0-32.0); CHLORIDE - SERUM 105 mmol/L (98-107); GLUCOSE 86 mg/dL (74-106); POTASSIUM - SERUM 3.6 mmol/L (3.5-5.1); SODIUM 138 mmol/L (136-145); eGFR NON AFRICAN AMERICAN 78 mL/min (90-120)
[2019-11-03 07:27] LABS: CALC OSMOLALITY 274 mosm/kg (275-300); UREA NITROGEN 13 mg/dL (7-18)
[2019-11-03 07:59] LABS: BASOPHILS 0.3 % (0-2); EOSINOPHILS 1.8 % (0-7); HEMATOCRIT 31.7 % (42.0-54.0); HEMOGLOBIN 10.3 g/dL (13.5-17.5); IMMATURE GRANULOCYTES 0.3 % (0-5); LYMPHOCYTES 28.3 % (15-50); MCH 28.9 pg (26.0-34.0); MCHC 32.5 g/dL (31.0-37.0); MCV 88.8 fL (80.0-100.0); MEAN PLATELET VOLUME 9.1 fL (7.4-10.4); MONOCYTES 10.5 % (2-11); NEUTROPHILS 58.8 % (40-80); PLATELET COUNT 223 10x3/uL (130-400); RBC 3.57 10x6/uL (4.20-6.10); RDW 14.6 % (11.5-14.5); WBC 10.8 10x3/uL (4.8-10.8)
--- NOTE | 2019-11-03 10:02 | NUR ---
Nutrition follow-up: Diet advanced to full liquids this morning. Pt reports he is tolerating breakfast at this time. Pt usually with good appetite. Labs reviewed +BM Wt: 239# Will provide food choices and honor food preferences as diet advances. RDN following.
[2019-11-03] MEDS ORDERED: HYDROCODON-ACE1 EA10 PO (13:41)
--- NOTE | 2019-11-03 14:58 | NUR ---
DC HOME AT THIS TIME AWAKE AND ALERT. NO DISTRESS NOTED. VOICE UNDERSTANDING OF DC INSTRUCTION WITH AT BEDSIDE. IV DC AT THIS TIME. STABLE CONDITION UPON DEPARTURE WITH ALL PERSONAL BELONGING.
--- NOTE | 2019-11-03 15:29 | MORECARE ---
CASE MANAGEMENT DISCHARGE SUMMARY PATIENT: HOANG COHEN UNIT: [id number] ADM DATE: 10/31/19 AGE: 69 : 49 SEX: M ROOM/BED: D.2201 AUTHOR: BELLA,DOC PHYSICIAN: REFERRING PHYSICIAN: JOEL KENDRICK MD DATE OF SERVICE: 11/03/19 Discharge Plan Patient Name: HOANG COHEN Facility: [facility]:[place] : 1950 Planned Disposition: Home or Self Care Anticipated Discharge Date: Discharge Date: 11/03/2019 Expected LOS: 0 Initial Reviewer: [email or web address] Initial Review Date: 10/31/2019 Generated: 11/03/19 4:28 pm DCP- Discharge Planning Updated by [email or web address]: Nevinval Pressley on 11/02/19 11:[address] CM met with patient regarding DC needs/plans. Patient lives independently with his , Jacinta. PCP: Dr. López. [facility]acy[facility]. DME: 0. Emergency contact: Jacinta Cohen () [phone]. Denies use of community resources. States his home environment is safe. CM discussed HHS, Rehab, SNF, but patient states he does not need anything, at this time. Patient denies additional services for his DC home. Denies being hospitalized within past 30 days. Jackie will drive patient home upon DC. DCPIA - Discharge Planning Initial Assessment Updated by [email or web address]: Nevin Pressley on 11/02/19 12:11 pm * Is the patient Alert and Oriented? Yes * How many steps to enter\exit or inside your home? * PCP Dr. López * Pharmacy [facility] * Preadmission Environment Home with Family * ADLs Independent * Equipment Cane * Other Equipment NA * List name and contact numbers for known caregivers / representatives who currently or will assist patient after discharge: Jacinta Cohen () [phone] * Verbal permission to speak to the caregivers and representatives has been obtained from the patient. Yes * Community resources currently utilized None * Please name any agencies selected above. NA * Additional services required to return to the preadmission environment? No * Can the patient safely return to the preadmission environment? Yes * Has this patient been hospitalized within the prior 30 days at any hospital? No Last DP export: 11/02/19 11:16 a Patient Name: HOANG COHEN Page [id number] at 1529 All edits/amendments must be made on the electronic document DICTATION DATE: 11/03/19 1528 HOSE HANDLER: MIGUEL 11/03/19 1528 RPT#: [id number] DC DATE:11/03/19 STATUS: DIS IN [facility] [address] [place] [address] END OF REPORT
== END 2019-11-03 15:02 | disposition home or self-care (01) | DRG 331 ==
LOC: D.SDCHOLD 10-31 07:16 → D.MS 10-31 07:16 → D.SDCHOLD 10-31 10:00 → D.MS 10-31 13:53
PROVIDERS: ADMIT Surgery; ATTEND Surgery
PROC: 0DTF0ZZ Resection of Right Large Intestine, Open Approach (ICD-10-PCS; principal; 2019-10-31 10:00)
PROC: 0FT44ZZ Resection of Gallbladder, Percutaneous Endoscopic Approach (ICD-10-PCS; 2019-10-31 10:00)
DX: K63.5 Polyp of colon (principal); K80.80 Other cholelithiasis without obstruction; I25.10 Atherosclerotic heart disease of native coronary artery without angina pectoris; I10 Essential (primary) hypertension

== ENCOUNTER 2020-02-28 15:55 | Inpatient (IN) | payer MEDICARE ==
[~2020-02-28] VITALS: Ht 182.9 cm; Wt 103.2 kg
[~2020-02-28 15:55] MED LIST changes: +HYDROCODON-ACE1 EA10 PO
[2020-03-13 11:45] LABS: BASOPHILS 0.3 % (0-2); EOSINOPHILS 2.3 % (0-7); HEMATOCRIT 39.4 % (42.0-54.0); HEMOGLOBIN 12.9 g/dL (13.5-17.5); IMMATURE GRANULOCYTES 0.7 % (0-5); MCH 28.8 pg (26.0-34.0); MCHC 32.7 g/dL (31.0-37.0); MCV 87.9 fL (80.0-100.0); MEAN PLATELET VOLUME 8.8 fL (7.4-10.4); MONOCYTES 6.2 % (2-11); NEUTROPHILS 56.5 % (40-80); PLATELET COUNT 220 10x3/uL (130-400); RBC 4.48 10x6/uL (4.20-6.10); RDW 14.8 % (11.5-14.5); WBC 8.9 10x3/uL (4.8-10.8)
[2020-03-13 11:48] LABS: KETONE NEGATIVE (NEGATIVE); NITRITE NEGATIVE (NEGATIVE)
[2020-03-13 11:49] LABS: BILIRUBIN NEGATIVE (NEGATIVE); UROBILINOGEN NORMAL mg/dL (< 2)
[2020-03-13] MEDS ORDERED: PEPCID40 MG PO (11:53)
[2020-03-13] MEDS ORDERED: FLUTICASONE PRO16 GM NASAL (11:55)
[2020-03-13] MEDS ORDERED: REPATHA SY140 MG/1 M SC (11:56)
[2020-03-13 11:59] LABS: APTT 31.4 SECONDS (22.8-39.4); INR 1.05 (0.85-1.17); PROTIME 13.7 SECONDS (11.6-15.0)
[2020-03-13 12:03] LABS: ANION GAP 12.1 mmol/L (8-16); CALCIUM 9.3 mg/dL (8.5-10.1); CARBON DIOXIDE 26.8 mmol/L (21.0-32.0); CREATININE - SERUM 1.2 mg/dL (0.6-1.3); POTASSIUM - SERUM 3.9 mmol/L (3.5-5.1)
[2020-03-19] VITALS (7 sets, daily range): BP systolic 99–132; BP diastolic 59–76; Ht 182.9 cm; Wt 103.2 kg
--- NOTE | 2020-03-19 11:04 | NUR ---
CAUTERY PAD PLACED ON LEFT THIGH. PLASMABLADE USED ON SETTING 6/8. AQUAMANTIS USED ON SETTING 170. CAUTERY PAD LOT#[id number] EXP. 01/01/2022
--- NOTE | 2020-03-19 13:33 | NUR ---
PATIENT STATES HE HAS A PAIN OF 9. UNABLE TO STAY AWAKE AT DURING THIS TIME. HAS TO BE WOKEN UP TO ASK PAIN LEVEL.
--- NOTE | 2020-03-19 13:39 | NUR ---
0.5 DILAUDED GIVEN. PATIENT STARTED SNORING. SATURATION DROPPED TO 91%. 2 L OXYGEN APPLIED.
--- NOTE | 2020-03-19 13:45 | NUR ---
RECIEVED PT FROM PACU. VS WNL. PT AROUSES TO VOICE, ANSWERS QUESTIONS O X4. PIV TO LEFT FOREARM, PATENT AND INFUSING, NO REDNESS OR SWELLING. O2 SAT 97%, VIA NC ON 2L. KARLA WRAP ON RLE, C/D/I. SPOUSE AT BEDSIDE, EDUCATED ON CL AND NEEDS, VERBALIZED UNDERSTANDING. BED LOW, RAILS X2, ALARM ON, CL IN REACH. WILL CONTINUE TO MONITOR.
--- NOTE | 2020-03-19 18:30 | NUR ---
PLACED PT ON CPM MACHIENE, TOLERATED WELL. BED LOW, CL IN REACH.
--- NOTE | 2020-03-19 18:50 | NUR ---
REC'D REPORT FROM DAYSMAFT RN. PATIENT RESTING IN BED WITH NO S/S OF DISTRESS AND DENIES NEEDS AT THIS TIME. IV TO LEFT FA INFUSING. PATIENT ON CPM TO RIGHT KNEE. BED IN LOWEST POSITION AND CALL LIGHT WITHIN REACH. ENCOURAGED THE PATIENT TO CALL IF HE HAS NEEDS. WILL CONTINUE TO MONITOR.
[2020-03-20 05:03] VITALS: BP 105/49
--- NOTE | 2020-03-20 05:10 | NUR ---
PLACED PATIENT ON CPM
--- NOTE | 2020-03-20 07:07 | NUR ---
RECEIVED BEDSIDE REPORT. PT LAYING IN BED A&O X4. PIV TO LEFT FOREARM, PATENT AND INFUSING, NO REDNESS OR SWELLING. CPM TO RIGHT LEG, SCD TO LEFT LEG. ISP AT BEDSIDE. EDUCATED PT ON CL AND NEEDS, VERBALIZED UNDERSTANDING. BED LOW, CL IN REACH. WILL CONTINUE TO MONITOR.
[2020-03-20 07:28] LABS: HEMATOCRIT 33.7 % (42.0-54.0); HEMOGLOBIN 10.7 g/dL (13.5-17.5); MCH 27.8 pg (26.0-34.0); MCHC 31.8 g/dL (31.0-37.0); MCV 87.5 fL (80.0-100.0); MEAN PLATELET VOLUME 9.3 fL (7.4-10.4); RBC 3.85 10x6/uL (4.20-6.10); WBC 16.2 10x3/uL (4.8-10.8)
[2020-03-20 07:54] VITALS: BP 111/64
[2020-03-20] MEDS ORDERED: ELIQUIS2.5 MG PO (08:05)
[2020-03-20] MEDS ORDERED: oxyCODONE IR PO (08:05)
[2020-03-20] MEDS ORDERED: KEFLEX500 MG PO (08:05)
--- NOTE | 2020-03-20 08:43 | NUR ---
ASSISTED PT TO BR, PT AMBULATING WELL WITH WALKER ALONE. PT DENIES FURTHER NEEDS. BED LOW, CL IN REACH.
--- NOTE | 2020-03-20 11:13 | MORECARE ---
CASE MANAGEMENT DISCHARGE SUMMARY PATIENT: HOANG CABELLO UNIT: [id number] ADM DATE: 03/19/20 AGE: 69 : 49 SEX: M ROOM/BED: D.1210 AUTHOR: REECE BLANCO PHYSICIAN: REFERRING PHYSICIAN: ASAEL BLANCO DO DATE OF SERVICE: 03/20/20 Discharge Plan Patient Name: HOANG CABELLO Facility: [facility]:[place] : 1950 Planned Disposition: Outpatient PT\OT Anticipated Discharge Date: 03/20/20 Discharge Date: Expected LOS: 1 Initial Reviewer: [email or web address] Initial Review Date: 03/19/2020 Generated: 03/20/20 12:12 pm External Providers External Provider: OTHER-OTHER Next Contact Date: Service Request Date: Service Type: Resolution: Reviewer: Comments: Patient Name: HOANG CABELLO Page 26797 at 1113 All edits/amendments must be made on the electronic document DICTATION DATE: 03/20/20 1113 SPOOL SANDER: MIGUEL 03/20/20 1113 RPT#: [id number] DC DATE: STATUS: ADM IN [facility] [address] [place] [address] END OF REPORT
[2020-03-20 11:25] VITALS: BP 118/74
--- NOTE | 2020-03-20 11:47 | MORECARE ---
CASE MANAGEMENT DISCHARGE SUMMARY PATIENT: HOANG COHEN UNIT: [id number] ADM DATE: 03/19/20 AGE: 69 : 49 SEX: M ROOM/BED: D.1210 AUTHOR: REECE BLACNO PHYSICIAN: REFERRING PHYSICIAN: ASAEL BLANCO DO DATE OF SERVICE: 03/20/20 Discharge Plan Patient Name: HOANG COHEN Facility: [facility]:[place] : 1950 Planned Disposition: Outpatient PT\OT Anticipated Discharge Date: 03/20/20 Discharge Date: Expected LOS: 1 Initial Reviewer: [email or web address] Initial Review Date: 03/19/2020 Generated: 03/20/20 12:47 pm DCP- Discharge Planning Updated by [email or web address]: Nevin Pressley on 03/20/20 10:[address] CM met with patient for DC planning. Patient is in agreement to same. Patient lives at his home with his , Gloria Cohen ([phone]). PCP: Dr. López. [facility]. DME: Brendon JACKSON, BSC. CM discussed HHS, PT, OP Therapy, Rehab. Patient choses [facility] OP Therapy. BORIS signed. Spoke with All, who gave the appointment for Wednesday @10:00, with the patient registering at 0945. Patient's will drive him to therapy and other appointments. Copy of order and appointment given to patient. Patient voices no other needs at this time. Last DP export: 03/20/20 10:13 Patient Name: HOANG COHEN Page 77661 at 1147 All edits/amendments must be made on the electronic document DICTATION DATE: 03/20/20 1147 CALENDER SUPERVISOR: MIGUEL 03/20/20 1147 RPT#: [id number] DC DATE: STATUS: ADM IN [facility] [address] [place] [address] END OF REPORT
--- NOTE | 2020-03-20 11:55 | MORECARE ---
CASE MANAGEMENT DISCHARGE SUMMARY PATIENT: HOANG COHEN UNIT: [id number] ADM DATE: 03/19/20 AGE: 69 : 49 SEX: M ROOM/BED: D.1210 AUTHOR: BELLA,DOC PHYSICIAN: REFERRING PHYSICIAN: ASAEL BLANCO DO DATE OF SERVICE: 03/20/20 Discharge Plan Patient Name: HOANG COHEN Facility: [facility]:[place] : 1950 Planned Disposition: Outpatient PT\OT Anticipated Discharge Date: 03/20/20 Discharge Date: Expected LOS: 1 Initial Reviewer: [email or web address] Initial Review Date: 03/19/2020 Generated: 03/20/20 12:54 pm DCP- Discharge Planning Updated by [email or web address]: Nevin Pressley on 03/20/20 10:[address] CM met with patient for DC planning. Patient is in agreement to same. Patient lives at his home with his , Gloria Cohen ([phone]). PCP: Dr. López. [facility]acy[facility]. DME: Brendon JACKSON, BSC. CM discussed HHS, PT, OP Therapy, Rehab. Patient choses [facility] Therapy. BORIS signed. Spoke with All, who gave the appointment for Wednesday @10:00, with the patient registering at 0945. Patient's will drive him to therapy and other appointments. Copy of order and appointment given to patient. Patient voices no other needs at this time. DCPIA - Discharge Planning Initial Assessment Updated by [email or web address]: Nevin Pressley on 03/20/20 11:48 am * Is the patient Alert and Oriented? Yes * How many steps to enter\exit or inside your home? 6 w/rail * PCP Dr. López * [facility] * Preadmission Environment Home with Family * ADLs Independent * Equipment Shower Chair Walker * Other Equipment CPM Will use ice bags for knee * List name and contact numbers for known caregivers / representatives who currently or will assist patient after discharge: Gloria Cohen () [phone] * Verbal permission to speak to the caregivers and representatives has been obtained from the patient. Yes * Community resources currently utilized None * Please name any agencies selected above. [facility] Y[facility]rapy * Additional services required to return to the preadmission environment? Yes * Can the patient safely return to the preadmission environment? Yes * Has this patient been hospitalized within the prior 30 days at any hospital? No Last DP export: 03/20/20 10:47 Patient Name: HOANG COHEN Page 51029 at 1155 All edits/amendments must be made on the electronic document DICTATION DATE: 03/20/201153 MANAGER INTERVENTIONAL: MIGUEL 03/20/20 115 RPT#: [id number] DC DATE: STATUS: ADM IN [facility] [address] [place] [address] END OF REPORT
--- NOTE | 2020-03-20 13:58 | OP ---
PATIENT NAME: HOANG COHEN MEDICAL RECORD: [id number] :[birth year] LOCATION:D. D.1210 ADMISSION DATE:03/19/20 SURGEON: HUSSEIN BLANCO DO DATE OF OPERATION: 03/19/2020 PROCEDURE PERFORMED: Right total knee arthroplasty. PREOPERATIVE DIAGNOSIS: Right knee osteoarthritis. POSTOPERATIVE DIAGNOSIS: Right knee osteoarthritis. INDICATIONS: Mr. Cohen is a 69-year-old male well known to me, who has had right knee osteoarthritis for quite some time. He has been getting injections and he is at a point where he could not hardly walk, going up and down stairs without excruciating pain. He said the knee would give out on him quite a bit. I informed him of the risks of the surgery including infection, bleeding, damage to nerves or vessels, need for further surgery, loosening, failure of implants and continued pain, blood clots, and even and he signed a consent. SURGEON: Hussein Blanco DO DESCRIPTION OF PROCEDURE: The patient was taken to the operative suite. After given a block by anesthesia in the preoperative area, laid in the supine position, given general anesthetic and LMA was placed. He was given 2 grams Ancef, 80 mg of gentamicin and a gram of TXA. The right lower extremity was then prepped and draped in sterile fashion. Timeout was performed. Everyone was agreeance with correct side, site, patient and procedure. I then began by marking out the skin and covered in Ioban and then used a 10 blade scalpel, made a careful dissection down to the capsule, then used a medial parapatellar approach through the capsule with a fresh 10 blade. I then everted the patella and milled it down and drilled it for a 32 3-peg patella and cemented down and removed the excess cement and held the squeezer on there for approximately 11 minutes while we addressed the femur. I then entered the intramedullary canal and cut the distal femur, removed those, the distal femur. I then exposed the proximal tibia and cut it and then removed the menisci and the extension block did not quite fit, so we cut more proximal tibia twice. Once we had enough room, I first sized the femur, first cut 4-in-1 cutting block and ensured there was no notching. I then tried the tibia and it was again need to be recut, could not quite fit it on. I then removed the trial femur. I had to recut the tibia, removed that and then put on the femoral trial and pinned the tibia into place and then trialled a poly, it fit very well. Decided to try an 11 poly. I then drilled the lug holes in the femur and then drilled the holes for the tibia as we are using a press fit tibia and femur, the Persona knee. I then impacted on the tibia and the femur and tried the 11 poly and it had some laxity in varus and valgus stress in extension and flexion and went to a 14 E poly, medial congruent bearing and that fit very well and had good stability in flexion and extension. We then irrigated out the knee with saline and then used 10% povidone iodine with 500 mL of normal saline solution, let it set for 3 minutes and irrigated that out with an over a liter of normal saline, put in Lester and vancomycin and tobramycin powder. He was then given another gram of TXA. I then closed the capsule with Simba Olivas, certified surgical assistant public defender, with a #1 Vicryl in a [id number] fashion. Simba then closed the skin with 2-0 Vicryl in inverted interrupted fashion. ZipLine was placed on the knee. He was then dressed with Adaptic, 4 x 4s, ABD, Webril, an Juan Antonio wrap and PURA hose stocking at the knee. He was then awakened and taken to recovery in stable OPERATIVE REPORT [id number] HOANG COHEN condition. Blood loss was approximately 200 mL. COMPLICATIONS: None. Of note, we did take an intraoperative x-ray as I released the posterior capsule and heard a crunch and was worried about fracture, but there was not. TRANSINT:[id number] Voice Confirmation ID: [id number] DOCUMENT ID: [id number] HUSSEIN BLANCO DO at 1355 CC: [id number] DICTATION DATE: 03/19/201627 TRAINS SERVICE CONDUCTOR: 03/20/20 0045 [facility] [address] [place] [address]
--- NOTE | 2020-03-20 16:45 | NUR ---
EDUCATED PT ON DISCHARGE INSTRUCTIONS, MEDICATIONS, FOLLOW UP APPOINTMENTS AND ACTIVITY, PT VERBALIZED UNDERSTANDING AND SIGNED PAPERWORK. REMOVED PIV FROM LEFT FOREARM, CATHETER INTACT, NO REDNESS OR SWELLING. ESCORTED PT TO FRONT ENTRANCE VIA WHEELCHAIR.
--- NOTE | 2020-03-20 17:14 | MORECARE ---
CASE MANAGEMENT DISCHARGE SUMMARY PATIENT: HOANG COHEN UNIT: [id number] ADM DATE: 03/19/20 AGE: 69 : 49 SEX: M ROOM/BED: D.1210 AUTHOR: BELLA,DOC PHYSICIAN: REFERRING PHYSICIAN: ASAEL BLANCO DO DATE OF SERVICE: 03/20/20 Discharge Plan Patient Name: HOANG COHEN Facility: [facility]:[place] : 1950 Planned Disposition: Outpatient PT\OT Anticipated Discharge Date: 03/20/20 Discharge Date: Expected LOS: 1 Initial Reviewer: [email or web address] Initial Review Date: 03/19/2020 Generated: 03/20/20 6:13 pm DCP- Discharge Planning Updated by [email or web address]: Nevin Pressley on 03/20/20 10:[address] CM met with patient for DC planning. Patient is in agreement to same. Patient lives at his home with his , Gloria Cohen ([phone]). PCP: Dr. López. [facility]. DME: Brendon JACKSON, BSC. CM discussed HHS, PT, OP Therapy, Rehab. Patient choses [facility] OP Therapy. BORIS signed. Spoke with All, who gave the appointment for Wednesday @10:00, with the patient registering at 0945. Patient's will drive him to therapy and other appointments. Copy of order and appointment given to patient. Patient voices no other needs at this time. DCPIA - Discharge Planning Initial Assessment Updated by [email or web address]: Nevin Pressley on 03/20/20 11:48 am * Is the patient Alert and Oriented? Yes * How many steps to enter\exit or inside your home? 6 w/rail * PCP Dr. López * [facility] * Preadmission Environment Home with Family * ADLs Independent * Equipment Shower Chair Walker * Other Equipment CPM Will use ice bags for knee * List name and contact numbers for known caregivers / representatives who currently or will assist patient after discharge: Gloria Cohen () [phone] * Verbal permission to speak to the caregivers and representatives has been obtained from the patient. Yes * Community resources currently utilized None * Please name any agencies selected above. [facility] OP Yherapy * Additional services required to return to the preadmission environment? Yes * Can the patient safely return to the preadmission environment? Yes * Has this patient been hospitalized within the prior 30 days at any hospital? No Last DP export: 03/20/20 10:55 Patient Name: HOANG COHEN Page 57841 at 1714 All edits/amendments must be made on the electronic document DICTATION DATE: 03/20/201713 LETTER CARRIER: MIGUEL 03/20/201713 RPT#: [id number] DC DATE: STATUS: ADM IN [facility] [address] [place] [address] END OF REPORT
== END 2020-03-20 17:27 | disposition home or self-care (01) | DRG 470 ==
LOC: D.SDCHOLD 03-13 10:00 → D.M3 03-19 07:00 → D.SDCHOLD 03-19 09:00 → D.M3 03-19 10:51
PROVIDERS: ADMIT Orthopaedic Surgery; ATTEND Orthopaedic Surgery
PROC: 0SRC0JZ Replacement of Right Knee Joint with Synthetic Substitute, Open Approach (ICD-10-PCS; principal; 2020-03-19 09:15)
DX: M17.11 Unilateral primary osteoarthritis, right knee (principal); I10 Essential (primary) hypertension; E78.5 Hyperlipidemia, unspecified

== ENCOUNTER → 2020-02-28 19:55 | Outpatient (CLI) | payer MEDICARE ==
[2019-11-01 10:04] VITALS: BMI 32.4
== END | disposition home or self-care (01) ==
LOC: D.LABREF 19:55
PROVIDERS: ATTEND Orthopaedic Surgery
DX: M17.11 Unilateral primary osteoarthritis, right knee (principal)